=== PATIENT | female | born 1950 | race Caucasian/White ===

== ENCOUNTER 2020-10-14 14:38 | Inpatient (IN) | payer OTHER, SELFPAY ==
--- OUTSIDE RECORDS SUMMARY | 2020-10-14 14:41 | XMS REPORT | Continuity of Care Document ---
:1950 Author Organization [facility] t Address [address] [place] [address] Care Team Providers Name Role Phone Unavailable Unavailable Unavailable Problems This patient has no known problems. Allergies, Adverse Reactions, Alerts This patient has no known allergies or adverse reactions. Medications This patient has no known medications. Procedures This patient has no known procedures. Encounters Start End Encounter Admission Attending Care Care Encounter Source Date/Time Date/Time Type Type Clinicians Facility Department ID 2020-09-21 2020-09-21 Outpatient [facility] [id number] [place] 00:00:00 00:00:[id number] 2020-08-31 2020-08-31 Outpatient [facility] [id number] [place] 00:00:00 00:00:[id number] Results This patient has no known results.
--- NOTE | 2020-10-14 15:32 | RAD REPORT ---
EXAM DESCRIPTION: CT - Head Brain Wo Cont - 10/14/2020 3:12 pm CLINICAL HISTORY: Alteration of awareness/confusion COMPARISON: None TECHNIQUE: Computed axial tomography of the head was obtained. IV contrast was not requested. All CT scans are performed using dose optimization technique as appropriate and may include automated exposure control or mA/KV adjustment according to patient size. FINDINGS: Beam hardening artifact limits evaluation of portions of cerebellum. An intracranial bleed is not seen . The ventricles are normal in caliber. No extra-axial fluid collection is noted. Mild low-density areas within periventricular, deep and subcortical white matter likely represent isc hemic changes secondary to small vessel disease. Fluid within the sinuses/ mastoids is not seen. IMPRESSION: No acute intracranial abnormality is seen. If patient's symptoms persist MRI of the bra in would be recommended.
--- NOTE | 2020-10-14 15:33 | RAD REPORT ---
EXAM DESCRIPTION: Jacy Single View10/14/2020 3:25 pm CLINICAL HISTORY: Fever COMPARISON: none FINDINGS: The lungs appear clear of acute infiltrate. The heart is normal size IMPRESSION: No acute abnormalities displayed
[2020-10-14 15:35] LABS: Absolute Lymphocytes (CBC) 0.8 K/uL (0.7-4.9); Basophils % 0.4 % (0-1.3); Hematocrit 35.9 % (36.0-45.0); Lymphocytes % 6.1 % (15.3-44.8); MPV 9.8 fL (7.6-11.3); RBC Red Blood Cell Count 4.31 M/uL (3.86-4.86)
[2020-10-14 15:37] LABS: Protime INR 1.34
[2020-10-14 15:47] LABS: ALT/SGPT 16 U/L (12-78); AST/SGOT 9 U/L (15-37); Albumin 2.8 g/dL (3.4-5.0); Alkaline Phosphatase 63 U/L (45-117); BUN Blood Urea Nitrogen 19 mg/dL (7-18); Bicarbonate 24 mmol/L (21-32); Bilirubin Direct 0.4 mg/dL (0-0.2); Creatine Phosphokinase 48 U/L (26-192); Glucose Level 306 mg/dL (74-106); Lipase 85 U/L (73-393); Potassium 4.2 mmol/L (3.5-5.1); Protein, Total 8.1 g/dL (6.4-8.2); Sodium Level 133 mmol/L (136-145); Troponin (Emerg Dept Use Only) < 0.02 ng/mL (0.0-0.045)
--- NOTE | 2020-10-14 16:01 | ER ---
Nurse's Notes [facility] Name: Jorge Thomas Age: 70 yrs Sex: Female : 1950 Arrival Date: 10/14/2020 Time: 14:41 Bed 5 Private MD: Diagnosis: Altered mental status, unspecified;Urinary tract infection, site not specified;Delirium due to known physiological condition Presentation: 10/14 14:41 Chief complaint: Pt's neighbor brought pt in for a possible stroke. She had been sv texting her with no response back around 1200, went to her house and noted that the pt was confused and not acting her normal self. She stated that she tried to drop off dinner to her house around 1900 yesterday but the pt never picked it up outside her door. EMS was on scene but did not come in by EMS. 14:53 Chief complaint: Patient states: Confusion, slow to respond to questions, leg weakness ll1 for 1 day. Neighbor saw her yesterday. Didn't respond to text messages, so the neighbor went to check on her today. Was found confused, not making sense. Last well known time is unknown. Coronavirus screen: Client denies travel out of the [place] in the last 14 days. At this time, the client does not indicate any symptoms associated with coronavirus-19. Ebola Screen: Patient denies travel to an Ebola-affected area in the 21 days before illness onset. No acute neurological deficit is noted. Initial Sepsis Screen: Does the patient meet any 2 criteria? No. Patient's initial sepsis screen is negative. Does the patient have a suspected source of infection? No. Patient's initial sepsis screen is negative. Risk Assessment: Do you want to hurt yourself or someone else? Patient reports no desire to harm self or others. Onset of symptoms was October 13, 2020. 14:53 Method Of Arrival: Wheelchair ll1 14:53 Acuity: EDITH 2 ll1 Stroke Activation: Symptom onset > 6 hours Physician: Stroke Attending; Name: ; Notified At: ; Arrived At: Physician: Chief Stroke Resident; Name: ; Notified At: ; Arrived At: Physician: Stroke Resident; Name: ; Notified At: ; Arrived At: Physician: ED Attending; Name: ; Notified At: ; Arrived At: Physician: ED Resident; Name: ; Notified At: ; Arrived At: Historical: - Allergies: 15:59 PENICILLINS; sv - PMHx: 14:56 Hypertension; ll1 - PSHx: 14:56 Unable to obtain; ll1 - Immunization history:: Flu vaccine is up to date. - Social history:: Smoking status: Patient denies any tobacco usage or history of. - Family history:: not pertinent. - Hospitalizations: : No recent hospitalization is reported. Screenin:51 Abuse screen: Denies threats or abuse. Denies injuries from another. Nutritional hb screening: No deficits noted. Tuberculosis screening: No symptoms or risk factors identified. Fall Risk Total Duque Fall Scale indicates Low Risk Score (25-44 pts). Fall prevention measures have been instituted. Side Rails Up X 2 Frequent Obs/Assesments occuring Family Present and informed to notify staff if they need to leave bedside As available Patient and Family Educated on Fall Prevention Program and strategies. Assessment: 15:00 General: Appears in no apparent distress. Behavior is calm, cooperative. Pain: Denies hb pain. Neuro: Level of Consciousness is awake, alert, obeys commands, confused, Oriented to person, place, time. Cardiovascular: Patient's skin is warm and dry. Rhythm is regular. Respiratory: Respiratory effort is even, unlabored, Respiratory pattern is regular, symmetrical. GI: No signs and/or symptoms were reported involving the gastrointestinal system. : No signs and/or symptoms were reported regarding the genitourinary system. EENT: No signs and/or symptoms were reported regarding the EENT system. Derm: Skin is pink, warm \T\ dry. Musculoskeletal: No signs and/or symptoms reported regarding the musculoskeletal system. 16:37 Reassessment: Patient appears in no apparent distress at this time. Patient and/or hb family updated on plan of care and expected duration. Pain level reassessed. Patient is alert, oriented x 3, equal unlabored respirations, skin warm/dry/pink. 17:36 Reassessment: Patient appears in no apparent distress at this time. Patient and/or hb family updated on plan of care and expected duration. Pain level reassessed. Patient is alert, oriented x 3, equal unlabored respirations, skin warm/dry/pink. Patient states feeling better. Patient states symptoms have improved. 18:46 Reassessment: Patient appears in no apparent distress at this time. Patient and/or hb family updated on plan of care and expected duration. Pain level reassessed. Patient is alert, oriented x 3, equal unlabored respirations, skin warm/dry/pink. Patient denies pain at this time. Patient states feeling better. Patient states symptoms have improved. Vital Signs: 14:53 BP 156 / 69; Pulse 87; Resp 18; Temp 100.1; Pulse Ox 89% on R/A; Weight 127.01 kg; ll1 Height 5 ft. 4 in. (162.56 cm); Pain 0/10; 16:30 BP 129 / 77; Pulse 82; Resp 17; Pulse Ox 95% on 2 lpm NC; hb 17:36 BP 130 / 55; Pulse 74; Resp 17; Pulse Ox 96% on 2 lpm NC; hb 18:54 BP 148 / 68; Pulse 15; Temp 98.5(O); Pulse Ox 98% ; hb 19:43 BP 135 / 55; Pulse 64; Resp 18; Temp 97.9(O); Pulse Ox 95% on R/A; oe 19:56 BP 121 / 73; Pulse 66; Resp 16; Temp 98.1(O); Pulse Ox 98% on R/A; Pain 0/10; bb 14:53 Body Mass Index 48.06 (127.01 kg, 162.56 cm) ll1 ED Course: 14:41 Patient arrived in ED. rg4 14:41 Kel Mallory MD is Attending Physician. rn 14:51 Arm band placed on. hb 14:51 Patient has correct armband on for positive identification. Bed in low position. Call hb light in reach. Side rails up X 1. 14:55 Triage completed. ll1 15:04 Inserted saline lock: 20 gauge in right antecubital area, using aseptic technique. hb Blood collected. 15:12 Head Brain Wo Cont In Process Unspecified. EDMS 15:17 Supriya Molina, ZARI is Primary Nurse. hb 15:25 Chest Single View XRAY In Process Unspecified. EDMS 16:00 Ladarius Baker MD is Hospitalizing Provider. rn 17:32 Urine Dipstick--Ancillary (enter results) Sent. sv 19:56 No provider procedures requiring assistance completed. Patient admitted, IV remains in bb place. Administered Medications: 16:36 Drug: Tylenol 1000 mg Route: PO; hb 17:32 Follow up: Response: No adverse reaction hb 16:37 Drug: LevaQUIN 750 mg Volume: 150 ml; Route: IVPB; Infused Over: 90 mins; Site: right hb antecubital; Point of Care Testing: Blood Glucose: 14:50 Blood Glucose: 312 mg/dL; hb Ranges: Outcome: 16:00 Decision to Hospitalize by Provider. rn 19:56 Admitted to Tele accompanied by tech, via stretcher, room 228, with chart, Report bb called to Ryan RN 19:56 Condition: stable 19:56 Instructed on the need for admit. 20:20 Patient left the ED. wilmer Signatures: Dispatcher [employer] Roz Esquivel RN RN sv Ballard, Brenda, RN RN bb Nieto, Roman, MD MD rn Baxter, Heather, RN RN hb Garcia, Rubi rg4 Dakota Bowie Lynsay RN RN ll1 Corrections: (The following items were deleted from the chart) 15:00 14:41 Chief complaint: Pt's neighbor brought pt in for a possible stroke. She had been sv texting her with no response back around 1200, went to her house and noted that the pt was confused and not acting her normal self. She stated that she tried to drop off dinner to her house around 1900 yesterday but the pt never picked it up outside her door. sv 15:59 14:56 Allergies: No Known Allergies; ll1 sv 18:58 18:54 Pulse 15bpm; Temp 98.5F Oral; hb hb
--- NOTE | 2020-10-14 16:01 | EDPHYS ---
Physician Documentation [facility] Name: Jorge Thomas Age: 70 yrs Sex: Female : 1950 Arrival Date: 10/14/2020 Time: 14:41 Bed 5 Private MD: ED Physician Kel Mallory HPI: 10/14 14:52 This 70 yrs old Female presents to ER via Unassigned with complaints of S/S rn of Possible Stroke. 14:51 Onset: The symptoms/episode began/occurred last night. rn 14:52 The patient's problem is reported as altered mental status, confusion. Duration: The rn episode is continuous. The symptoms are alleviated by nothing. The symptoms are aggravated by nothing. Associated signs and symptoms: Pertinent positives: confusion, Pertinent negatives: abdominal pain, chest pain, combativeness, diaphoresis, diarrhea, headache, seizure, vertigo, vomiting. Severity of symptoms: At their worst the symptoms were mild in the emergency department the symptoms are unchanged. The patient has not experienced similar symptoms in the past. The patient has not recently seen a physician. Per neighbor, patient last spoken to last night/yesterday. Took her dinner and patient did not get it from front porch, checked on her today, noticed she seemed confused, and brought her in. No hx of stroke. No known drug use or ETOH. Pt states not feeling well since last night, reports mild sob, but otherwise denies headache/cough/sore throat/congestion/abd pain/vomiting/diarrhea. Reports both legs feel weak, and feels like speech is normal for her. Denies fall or head trauma. NO change in medication. . Historical: - Allergies: 15:59 PENICILLINS; sv - PMHx: 14:56 Hypertension; ll1 - PSHx: 14:56 Unable to obtain; ll1 - Immunization history:: Flu vaccine is up to date. - Social history:: Smoking status: Patient denies any tobacco usage or history of. - Family history:: not pertinent. - Hospitalizations: : No recent hospitalization is reported. ROS: 14:55 Constitutional: Negative for fever, chills, and weight loss, Eyes: Negative for injury, rn pain, redness, and discharge, Neck: Negative for injury, pain, and swelling, Cardiovascular: Negative for chest pain, palpitations, and edema, Respiratory: Negative for wheezing, and pleuritic chest pain, Abdomen/GI: Negative for abdominal pain, nausea, vomiting, diarrhea, and constipation, Back: Negative for injury and pain, : Negative for injury, bleeding, discharge, and swelling, MS/Extremity: Negative for injury and deformity, Skin: Negative for injury, rash, and discoloration, Neuro: Negative for headache, numbness, tingling, and seizure. Exam: 14:55 Constitutional: This is a well developed, well nourished patient who is awake, alert, rn seems confused, able to get from wheelchair to bed on her own and get into bed. Head/Face: Normocephalic, atraumatic. Eyes: Pupils equal round and reactive to light, extra-ocular motions intact. ENT: dry MM Neck: Trachea midline, no thyromegaly or masses palpated, and no cervical lymphadenopathy. Supple, full range of motion without nuchal rigidity, or vertebral point tenderness. No Meningismus. Cardiovascular: Regular rate and rhythm. No pulse deficits. Respiratory: Mild tachypnea, no retractions. Abdomen/GI: soft, non-tender Skin: Warm, dry MS/ Extremity: Pulses equal, no cyanosis. Neurovascular intact. Full, normal range of motion. Equal circumference. Neuro: Awake and alert, GCS 15, oriented to person, place, and situation, does not know year. Cranial nerves II-XII grossly intact. Motor strength 5/5 in all extremities. Sensory grossly intact. Cerebellar exam normal. 16:26 ECG was reviewed by the Attending Physician. rn Vital Signs: 14:53 BP 156 / 69; Pulse 87; Resp 18; Temp 100.1; Pulse Ox 89% on R/A; Weight 127.01 kg; ll1 Height 5 ft. 4 in. (162.56 cm); Pain 0/10; 16:30 BP 129 / 77; Pulse 82; Resp 17; Pulse Ox 95% on 2 lpm NC; hb 17:36 BP 130 / 55; Pulse 74; Resp 17; Pulse Ox 96% on 2 lpm NC; hb 18:54 BP 148 / 68; Pulse 15; Temp 98.5(O); Pulse Ox 98% ; hb 19:43 BP 135 / 55; Pulse 64; Resp 18; Temp 97.9(O); Pulse Ox 95% on R/A; oe 19:56 BP 121 / 73; Pulse 66; Resp 16; Temp 98.1(O); Pulse Ox 98% on R/A; Pain 0/10; bb 14:53 Body Mass Index 48.06 (127.01 kg, 162.56 cm) ll1 MDM: 14:41 Patient medically screened. rn 15:00 ED course: Nonfocal neuro exam, pt seems more delirious or encephalopathic than rn anything, possible UTI or pneumonia given vital signs of fever and hypoxemia. Last known normal some time yesterday, so even if CVA, outside of window. . 15:58 Differential diagnosis: TIA, metabolic disorder, UTI, dehydration, TIA, CVA, pneumonia, rn COVID. Data reviewed: vital signs, nurses notes, lab test result(s), EKG, radiologic studies, CT scan, plain films, and as a result, I will admit patient. Counseling: I had a detailed discussion with the patient and/or guardian regarding: the historical points, exam findings, and any diagnostic results supporting the discharge/admit diagnosis, lab results, radiology results, the need for further work-up and treatment in the hospital. Response to treatment: the patient's symptoms have mildly improved after treatment, and as a result, I will admit patient. Admission orders: after a detailed discussion of the patient's condition and case, the admit orders are written by me. ED course: Pt with UTI, nitrate +, delirium, neg ct head and cxr, will admit to Dr. Baker. . 10/14 14:51 Order name: Basic Metabolic Panel rn 10/14 14:51 Order name: Blood Culture Adult (2) rn 10/14 14:51 Order name: CBC with Diff rn 10/14 14:51 Order name: CPK rn 10/14 14:51 Order name: Lactate rn 10/14 14:51 Order name: LFT's rn 10/14 14:51 Order name: Lipase rn 10/14 14:51 Order name: Procalcitonin rn 10/14 14:51 Order name: Protime (+inr) rn 10/14 14:51 Order name: Ptt, Activated rn 10/14 14:51 Order name: Troponin (emerg Dept Use Only); Complete Time: 15:57 rn 10/14 14:51 Order name: Urine Microscopic Only rn 10/14 14:51 Order name: Urine Culture 10/14 14:51 Order name: Basic Metabolic Panel; Complete Time: 15:57 EDWA 10/14 14:51 Order name: Blood Culture [facility] [place] 10/14 14:51 Order name: CBC with Automated Diff EDWA 10/14 14:51 Order name: Creatine Phosphokinase; Complete Time: 15:57 EDMS 10/14 14:52 Order name: Lactate; Complete Time: 15:57 EDWA 10/14 14:52 Order name: Liver (Hepatic) Function; Complete Time: 15:57 EDMS 10/14 14:52 Order name: Lipase; Complete Time: 15:57 EDWA 10/14 14:52 Order name: Procalcitonin [facility] [place] 10/14 14:52 Order name: Protime (+INR); Complete Time: 15:43 EDWA 10/14 14:52 Order name: PTT, Activated Partial Thromb; Complete Time: 15:43 EDWA 10/14 14:52 Order name: Urine Drug Screen 10/14 14:52 Order name: AMMONIA; Complete Time: 15:43 10/14 14:54 Order name: ETOH Level; Complete Time: 15:57 10/14 15:03 Order name: Glucose, Ancillary Testing; Complete Time: 15:34 EDWA 10/14 16:01 Order name: Urine Dipstick--Ancillary (enter results) 10/14 14:51 Order name: CT Head Brain wo Cont 10/14 14:51 Order name: Chest Single View XRAY; Complete Time: 15:34 10/14 14:51 Order name: Accucheck; Complete Time: 15:20 rn 10/14 14:51 Order name: Cardiac monitoring; Complete Time: 16:16 rn 10/14 14:51 Order name: EKG - Nurse/Tech; Complete Time: 16:16 rn 10/14 14:51 Order name: IV Saline Lock - Large Bore; Complete Time: 16:16 rn 10/14 14:51 Order name: Labs collected and sent; Complete Time: 15:20 rn 10/14 14:51 Order name: O2 Per Protocol; Complete Time: 15:20 rn 10/14 14:51 Order name: O2 Sat Monitoring; Complete Time: 15:20 rn 10/14 14:51 Order name: Urine Dipstick-Ancillary (obtain specimen); Complete Time: 16:23 rn 10/14 14:51 Order name: Head Brain Wo Cont; Complete Time: 15:34 EDWA 10/14 16:01 Order name: Urine Dipstick-Ancillary EDWA 10/14 16:28 Order name: CONS Physician Consult EDWA 10/14 16:28 Order name: CBC with Automated Diff EDWA 10/14 16:28 Order name: CBC with Automated Diff EDWA 10/14 16:28 Order name: Comprehensive Metabolic Panel EDWA 10/14 16:28 Order name: Comprehensive Metabolic Panel EDWA 10/14 16:58 Order name: CBC Smear Scan EDWA 10/14 17:02 Order name: COVID-19/FLU A+B EDMS EC:26 Rate is 86 beats/min. Rhythm is regular. QRS Dalton is Normal. CO interval is normal. QRS rn interval is normal. QT interval is normal. No Q waves. T waves are Normal. No ST changes noted. Clinical impression: Normal ECG. Interpreted by me. Reviewed by me. Administered Medications: 16:36 Drug: Tylenol 1000 mg Route: PO; hb 17:32 Follow up: Response: No adverse reaction hb 16:37 Drug: LevaQUIN 750 mg Volume: 150 ml; Route: IVPB; Infused Over: 90 mins; Site: right hb antecubital; Point of Care Testing: Blood Glucose: 14:50 Blood Glucose: 312 mg/dL; hb Ranges: Critical Glucose Levels:Adult <50 mg/dl or >400 mg/dl <40 mg/dl or >180 mg/dl Disposition: 10/14/20 16:00 Hospitalization ordered by Ladarius Baker for Inpatient Admission. Preliminary diagnosis are Altered mental status, unspecified, Urinary tract infection, site not specified, Delirium due to known physiological condition. - Bed requested for Telemetry/MedSurg (Inpatient). - Status is Inpatient Admission. bb - Condition is Stable. - Problem is new. - Symptoms have improved. Signatures: Dispatcher [employer] [facility] [place] Roz Taylor, Ivy Olea RN, RN RN mw Ballard, Brenda, RN RN bb Nieto, Roman, MD MD rn Baxter, Heather, RN RN hb Lewis, Lynsay RN RN ll1 Corrections: (The following items were deleted from the chart) 14:56 14:52 Per neighbor, patient last spoken to last night/yesterday. Took her dinner and rn patient did not get it from front porch, checked on her today, noticed she seemed confused, and brought her in. No hx of stroke. No known drug use or ETOH. . rn 15:59 14:56 Allergies: No Known Allergies; ll1 sv 16:14 14:52 Influenza Screen (A \T\ B)+BA.LAB.BRZ ordered. EDMS EDMS 16:14 14:52 CORONAVIRUS+MR.LAB.BRZ ordered. EDMS EDMS 19:05 16:00 Hospitalization Ordered by Ladarius Baker MD for Inpatient Admission. Preliminary mw diagnosis is Altered mental status, unspecified; Urinary tract infection, site not specified; Delirium due to known physiological condition. Bed requested for Telemetry/MedSurg (Inpatient). Status is Inpatient Admission. Condition is Stable. Problem is new. Symptoms have improved. rn 19:12 19:05 10/14/2020 16:00 Hospitalization Ordered by Ladarius Baker MD for Inpatient mw Admission. Preliminary diagnosis is Altered mental status, unspecified; Urinary tract infection, site not specified; Delirium due to known physiological condition. Bed requested for Telemetry/MedSurg (Inpatient). Status is Inpatient Admission. Condition is Stable. Problem is new. Symptoms have improved. mw 20:20 19:12 10/14/2020 16:00 Hospitalization Ordered by Ladarius Baker MD for Inpatient bb Admission. Preliminary diagnosis is Altered mental status, unspecified; Urinary tract infection, site not specified; Delirium due to known physiological condition. Bed requested for Telemetry/MedSurg (Inpatient). Status is Inpatient Admission. Condition is Stable. Problem is new. Symptoms have improved. mw
[2020-10-14 16:20] LABS: Urine Amorphous Sediment 1+ /HPF (NONE SEEN); Urine Bacteria >50 /HPF (<20); Urine RBC <5 /HPF (NONE SEEN)
[2020-10-14 16:21] LABS: Urine Blood 2+ (Negative); Urine Protein 3+ (NEG); Urine Specific Gravity 1.025 (1.005-1.030)
[2020-10-14] MEDS ORDERED: MORPHINE 2 MG/ML SYR IV PRN (16:23)
[2020-10-14] MEDS ORDERED: ACETAMINOPHEN 500 MG TAB PO PRN (16:23)
[2020-10-14] MEDS ORDERED: ALBUTEROL 2.5 MG/3 ML NEB SOL NEB PRN (16:23)
[2020-10-14] MEDS ORDERED: ONDANSETRON 4 MG/2 ML VIAL IV PRN (16:23)
[2020-10-14 16:26] LABS: Barbiturates NEGATIVE (NEGATIVE); Benzodiazepines NEGATIVE (NEGATIVE); Cocaine NEGATIVE (NEGATIVE); METHAMPHETAM NEGATIVE (NEGATIVE); Methadone NEGATIVE (NEGATIVE); Opiates NEGATIVE (NEGATIVE); Phencyclidine NEGATIVE (NEGATIVE); THC Cannibis NEGATIVE (NEGATIVE)
[2020-10-14] MEDS ORDERED: LORAZEPAM 0.5 MG TABLET PO PRN (16:26)
[2020-10-14] MEDS ORDERED: HYDRALAZINE HCL 20 MG/ML VIAL IV PRN (16:26)
[2020-10-14] MEDS: INSULIN -REGULAR HUMAN 50 UNIT/0.5 ML ML SQ SCH ×2 (16:30→21:03)
--- NOTE | 2020-10-14 16:34 | P.HP ---
Certification for Inpatient With expected LOS: >2 Midnights Patient will require the following post-hospital care: Home Health Services Practitioner: I am a practitioner with admitting privileges, knowledge of patient current condition, hospital course, and medical plan of care. Services: Services provided to patient in accordance with Admission requirements found in Title 42 Section 412.3 of the Code of Federal Regulations Patient History Date of Service: 10/14/20 Reason for admission: confusion History of Present Illness: 70 yr old female with past medical history of HTN , Presumed DM brought by neighbor after last seen yesterday but was not responding to calls and texts since then , found by neighbor to be confused today . on arrival , Head CT was negative for acute CVA , noted with elevated glucose at 340 . Urinalysis positive for UTI . Patient is still confused and unable to provide more history .She is [facility] admitted for urosepsis - Past Medical/Surgical History Has patient received pneumonia vaccine in the past: No Past Medical History: Unable to obtain Past Surgical History: Unable to obtain - Social History Smoking Status: Unknown if ever smoked Place of Residence: Home Review of Systems is unable to be obtained (due to confusion) Physical Examination - Physical Exam General: Cooperative, Confused HEENT: Atraumatic, Normocephalic, PERRLA Neck: Supple, 2+ carotid pulse no bruit, JVD not distended Respiratory: Clear to auscultation bilaterally, Normal air movement Cardiovascular: No edema, Normal pulses, Regular rate/rhythm, Normal S1 S2 Gastrointestinal: Normal bowel sounds, Soft and benign, Non-distended Musculoskeletal: No clubbing, No swelling Integumentary: No rashes, No breakdown Neurological: Normal strength at 5/5 x4 extr, Dementia - Studies Laboratory Data (last 24 hrs) 10/14/20 15:07: PT 15.5 H, INR 1.34, APTT 29.2 10/14/20 15:07: WBC 13.30 H, Hgb 12.2, Hct 35.9 L, Plt Count 217 10/14/20 15:07: Sodium 133 L, Potassium 4.2, BUN 19 H, Creatinine 1.34 H, Glucose 306 H, Total Bilirubin 1.0, AST 9 L, ALT 16, Alkaline Phosphatase 63, Lipase 85 Assessment and Plan - Advance Directives Does patient have a Living Will: No Does patient have a Durable POA for Healthcare: No Physician Review: Patient Assessed, Agree with Above Assessment and Plan Physician Review Additional Text: UTI- with Urosepsis Metabolic Encephalopathy Hyponatremia-mild ARF Hyperglycemia PLAN - start empirical antibiotics with Levaquin - gentle IVF with NS - start insulin sliding scale with accuchecks - follow urine culture and sensitivity and adjust abx - follow blood cx -neuro checks q6h for now - will dos Ativan prn for now - admit to tele bed -start lovenox for DVT prop - initiate full code for now Time Spent Managing Pts Care (In Minutes): 60
[2020-10-14] MEDS ORDERED: ACETAMINOPHEN 500 MG TAB ONE (16:44)
[2020-10-14] MEDS ORDERED: Levofloxacin 750mg IV 750 MG/150 ML BAG IV ONE (16:44)
[2020-10-14 16:57] LABS: Blood Morphology Comment NOT SEEN (NOT SEEN); Platelet Estimate ADEQ; White Blood Cell Scan OK (OK)
[2020-10-14] MEDS: NA CHLORIDE 0.9% 1,000 ML IV SCH ×2 (17:00→20:32)
[2020-10-14] MEDS ORDERED: Levofloxacin500mg IV 500 MG/100 ML BAG IV SCH (17:00)
[2020-10-14 17:02] LABS: SARS-COV-2 RT PCR NEGATIVE (NEGATIVE)
[2020-10-14 21:45] VITALS: BMI 48.4
[2020-10-14] MEDS ORDERED: Levofloxacin 250mg IV 250 MG/50 ML BAG IV SCH (23:00)
[2020-10-15] MEDS: NA CHLORIDE 0.9% 1,000 ML IV SCH ×2 (02:23→05:54)
[2020-10-15 04:48] LABS: Absolute Lymphocytes (CBC) 0.7 K/uL (0.7-4.9); Basophils % 0.3 % (0-1.3); Hematocrit 32.7 % (36.0-45.0); Lymphocytes % 6.7 % (15.3-44.8); MPV 9.6 fL (7.6-11.3); RBC Red Blood Cell Count 3.94 M/uL (3.86-4.86)
[2020-10-15 05:13] LABS: Albumin 2.4 g/dL (3.4-5.0); Bilirubin Total 0.7 mg/dL (0.2-1.0); Potassium 4.3 mmol/L (3.5-5.1); Protein, Total 7.1 g/dL (6.4-8.2)
[2020-10-15] MEDS: INSULIN -REGULAR HUMAN 50 UNIT/0.5 ML ML SQ SCH ×4 (08:59→21:53)
[2020-10-15] MEDS: ENOXAPARIN 40 MG/0.4 ML SQ SCH (09:00)
--- NOTE | 2020-10-15 09:32 | P.CNS ---
Date of Consult: 10/15/20 Reason for Consult: Hyponatremia/ CKD III Requesting Physician: Ladarius Baker Chief Complaint: confusion History of Present Illness: 70 yo WF HTN, DM presented to the ER with severe, progressive AMS in the setting of acute cystitis. She is feeling much better today. She reports a history of SRIKANTH requiring dialysis in the past. She denies NSAIDs. She reports drinking plenty of water and urinates well. 70 yr old female with past medical history of HTN , Presumed DM brought by neighbor after last seen yesterday but was not responding to calls and texts since then , found by neighbor to be confused today . on arrival , Head CT was negative for acute CVA , noted with elevated glucose at 340 . Urinalysis positive for UTI . 14:52 This 70 yrs old Female presents to ER via Unassigned with complaints of S/S rn of Possible Stroke. 14:51 Onset: The symptoms/episode began/occurred last night. rn 14:52 The patient's problem is reported as altered mental status, confusion. Duration: The rn episode is continuous. The symptoms are alleviated by nothing. The symptoms are aggravated by nothing. Associated signs and symptoms: Pertinent positives: confusion, Pertinent negatives: abdominal pain, chest pain, combativeness, diaphoresis, diarrhea, headache, seizure, vertigo, vomiting. Severity of symptoms: At their worst the symptoms were mild in the emergency department the symptoms are unchanged. The patient has not experienced similar symptoms in the past. The patient has not recently seen a physician. Per neighbor, patient last spoken to last night/yesterday. Took her dinner and patient did not get it from front porch, checked on her today, noticed she seemed confused, and brought her in. No hx of stroke. No known drug use or ETOH. Pt states not feeling well since last night, reports mild sob, but otherwise denies headache/cough/sore throat/congestion/abd pain/vomiting/diarrhea. Reports both legs feel weak, and feels like speech is normal for her. Denies fall or head trauma. NO change in medication. Allergies Penicillins Allergy (Verified 10/14/20 20:40) Shortness of breath Rexuwwy-Ych-Mgs Reductase Inhibitor Allergy (Verified 10/14/20 20:40) pain in the leg statins Allergy (Uncoded 10/14/20 20:40) pain in the leg Home medications list reviewed: Yes Home Medications: Cholecalciferol (Vitamin D3) [Vitamin D3] 1 tab PO TID 10/14/20 Docosahexanoic AC/Epa [Fish Oil 1,000 MG*] 1 cap PO TID 10/14/20 Ezetimibe 1 tab PO DAILY 10/14/20 Fenofibric Acid (Choline) [Fenofibric Acid] 1 cap PO DAILY 10/14/20 Ferrous Sulfate [Ferrous Sulfate*] 1 tab PO DAILY 10/14/20 Glimepiride 1 tab PO DAILY 10/14/20 Insulin Glargine,Hum.rec.anlog [Lantus Solostar] 23 units SQ BID 10/14/20 Insulin Lispro [Insulin Lispro Kwikpen U-100] 4 units SQ ACHS 10/14/20 Losartan Potassium 1 tab PO DAILY 10/14/20 Metformin HCl [Metformin HCl ER] 2 tab PO BID 10/14/20 Niacin (Inositol Niacinate) [Niacin 500 mg Capsule] 1 cap PO BEDTIME 10/14/20 Pantoprazole [Protonix Tab*] 1 tab PO DAILY 10/14/20 Sitagliptin Phosphate [Januvia*] 1 tab PO DAILY 10/14/20 hydroCHLOROthiazide [Hydrochlorothiazide] 1 tab PO DAILY 10/14/20 - Past Medical/Surgical History Diabetic: Yes -: HTN -: UTI -: IDDM -: HLD -: 6YEARS AGO-HYSTERECTOMY - Family History Uncle Medical History: Diabetes - Social History Alcohol use: Yes CD- Drugs: No Caffeine use: Yes Place of Residence: Home Review of Systems 10-point ROS is otherwise unremarkable Physical Examination Temp Pulse Resp BP Pulse Ox 98.8 F 69 20 124/58 L 95 10/15/20 08:00 10/15/20 08:00 10/15/20 08:00 10/15/20 08:00 10/15/20 08:00 General: In no apparent distress, Oriented x3, Cooperative HEENT: Atraumatic Neck: Supple Respiratory: Clear to auscultation bilaterally Cardiovascular: Edema (Trace) Gastrointestinal: Soft and benign, Non-distended Musculoskeletal: No clubbing, No contractures Integumentary: No rashes, No cyanosis Neurological: Normal speech Laboratory Data (last 24 hrs) 10/14/20 15:07: PT 15.5 H, INR 1.34, APTT 29.2 10/14/20 15:07: WBC 13.30 H, Hgb 12.2, Hct 35.9 L, Plt Count 217 10/14/20 15:07: Sodium 133 L, Potassium 4.2, BUN 19 H, Creatinine 1.34 H, Glucose 306 H, Total Bilirubin 1.0, AST 9 L, ALT 16, Alkaline Phosphatase 63, Lipase 85 Imagings Data: EXAM DESCRIPTION: Jacy Single View10/14/2020 3:25 pm CLINICAL HISTORY: Fever COMPARISON: none FINDINGS: The lungs appear clear of acute infiltrate. The heart is normal size IMPRESSION: No acute abnormalities displayed Conclusions/Impression: A/P CKD III with proteinuria -No NSAIDs -Discontinue IVF later today. -Restart Losartan as indicated Hyponatremia -Reduce IVF with NS -Improve BG HTN with CKD -Restart Losartan as indicated DM II with CKD -Continue RISS -Restart Lantus q12 and titrate as needed Moderate malnutrition -Encourage nutrition with protein supplementation -ADA diet Anemia in chronic illness -Monitor H&H Acute cystitis -Continue Levaquin -Follow C&S Case reviewed with Dr. Villasenor
[2020-10-15] MEDS ORDERED: NA CHLORIDE 0.9% 1,000 ML IV SCH (10:36)
[2020-10-15] MEDS ORDERED: GLUCAGON 1 MG/VIAL IM PRN (10:38)
[2020-10-15] MEDS ORDERED: D50W 25 GM/50 ML SYRINGE IV PRN (10:38)
[2020-10-15] MEDS ORDERED: INSULIN GLARGINE 100 UNITS/ML SQ SCH ×2 (11:00→21:00)
[2020-10-15] MEDS ORDERED: D50W 25 GM/50 ML VIAL IV PRN (15:00)
--- NOTE | 2020-10-15 15:01 | P.PN ---
Subjective Date of Service: 10/15/20 Primary Care Provider: Janak Chief Complaint: confusion Subjective: Improving Physical Examination - Vital Signs Temperature: 98.8 F Blood Pressure: 139/65 Pulse: 64 Respirations: 20 Pulse Ox (%): 97 - Studies Laboratory Data (last 24 hrs) 10/14/20 15:07: PT 15.5 H, INR 1.34, APTT 29.2 10/14/20 15:07: WBC 13.30 H, Hgb 12.2, Hct 35.9 L, Plt Count 217 10/14/20 15:07: Sodium 133 L, Potassium 4.2, BUN 19 H, Creatinine 1.34 H, Glucose 306 H, Total Bilirubin 1.0, AST 9 L, ALT 16, Alkaline Phosphatase 63, Lipase 85 Assessment & Plan Discharge Plan: Home Plan to discharge in: 24 Hours Physician Review Additional Text: Physical exam: Patient alert, cooperative. No significant distress Heart: Regular rate and rhythm Lungs: Clear to auscultation Abdomen: Soft nontender nondistended Extremities: Good range of motion to the upper lower extremities no focal deficits Impression: Toxic/metabolic encephalopathy related to UTI with bacteremia Acute renal failure with hyponatremia likely dehydration Diabetes mellitus type 2 with hyperglycemia Plan: Toxic/metabolic encephalopathy related to UTI with bacteremia: Continue with IV fluids. Continue IV antibiotic therapy. Urine culture positive for gram- negative rods. Await urine culture results. Patient will need 14-day treatment of medication. Acute renal failure with hyponatremia likely dehydration: Continue IV fluids. Await recommendations from nephrology. Diabetes mellitus type II with hyperglycemia: We will check A1c. Continue Accu- Cheks. Will adjust Lantus for better control. Time Spent Managing Pts Care (In Minutes): 55
[2020-10-15] MEDS: Levofloxacin 250mg IV 250 MG/50 ML BAG IV SCH (21:51)
[2020-10-16 06:13] LABS: Absolute Lymphocytes (CBC) 1.2 K/uL (0.7-4.9); Basophils % 0.4 % (0-1.3); Hematocrit 29.7 % (36.0-45.0); Lymphocytes % 11.7 % (15.3-44.8); RBC Red Blood Cell Count 3.61 M/uL (3.86-4.86)
[2020-10-16 06:34] LABS: Magnesium 1.6 mg/dL (1.8-2.4); Potassium 3.9 mmol/L (3.5-5.1); Thyroid Stimulating Hormone 1.21 uIU/mL (0.360-3.740)
[2020-10-16] MEDS ORDERED: MAGNESIUM SULFATE 1 gm IVPB 1 GM/100 ML BAG IV ONE (09:00)
[2020-10-16] MEDS: INSULIN -REGULAR HUMAN 50 UNIT/0.5 ML ML SQ SCH ×4 (09:07→20:48)
[2020-10-16] MEDS: INSULIN GLARGINE 100 UNITS/ML SQ SCH ×2 (09:08→20:48)
[2020-10-16] MEDS: ENOXAPARIN 40 MG/0.4 ML SQ SCH (09:08)
--- NOTE | 2020-10-16 09:16 | P.PN ---
Subjective Date of Service: 10/16/20 Primary Care Provider: Janak Chief Complaint: confusion Subjective: Improving, Doing well Physical Examination - Vital Signs Temperature: 97.8 F Blood Pressure: 125/60 Pulse: 58 Respirations: 18 Pulse Ox (%): 99 Assessment & Plan Discharge Plan: Home Plan to discharge in: 24 Hours Physician Review Additional Text: Physical exam: Patient remains afebrile. No complaints Patient alert, cooperative. No significant distress Heart: Regular rate and rhythm Lungs: Clear to auscultation Abdomen: Soft nontender nondistended Extremities: Good range of motion to the upper lower extremities no focal deficits Impression: Toxic/metabolic encephalopathy related to UTI with bacteremia Acute renal failure with hyponatremia likely dehydration, suspect underlying chronic renal disease stage III Diabetes mellitus type 2 with hyperglycemia Plan: Toxic/metabolic encephalopathy related to UTI with bacteremia: IV fluids have been discontinued. Patient taking good oral intake. Awaiting culture results from urine and blood. Possible discharge as early as today if cultures come back. We will need to repeat blood and urine culture results. Acute renal failure with hyponatremia likely dehydration, suspect underlying chronic renal disease stage III: IV fluids have been stopped. Taking good oral intake. Will discuss with nephrology.. Diabetes mellitus type II with hyperglycemia: Hemoglobin A1c 7.8. Continue Accu- Cheks. Will continue to adjust Lantus for better control. Time Spent Managing Pts Care (In Minutes): 55
[2020-10-16] MEDS: Levofloxacin 250mg IV 250 MG/50 ML BAG IV SCH (20:48)
[2020-10-17 04:14] LABS: Absolute Lymphocytes (CBC) 1.2 K/uL (0.7-4.9); Basophils % 0.6 % (0-1.3); Hematocrit 29.3 % (36.0-45.0); Lymphocytes % 14.2 % (15.3-44.8); MPV 10.1 fL (7.6-11.3); RBC Red Blood Cell Count 3.62 M/uL (3.86-4.86)
[2020-10-17 04:30] LABS: Magnesium 1.9 mg/dL (1.8-2.4); Potassium 3.9 mmol/L (3.5-5.1)
[2020-10-17] MEDS: INSULIN -REGULAR HUMAN 50 UNIT/0.5 ML ML SQ SCH ×2 (07:30→11:36)
[2020-10-17 08:58] VITALS: BP 137/62; TEMP 97.1
[2020-10-17] MEDS: INSULIN GLARGINE 100 UNITS/ML SQ SCH (09:15)
[2020-10-17] MEDS: ENOXAPARIN 40 MG/0.4 ML SQ SCH (09:15)
--- NOTE | 2020-10-17 09:20 | P.DS ---
Admission Date: 10/14/20 Discharge Date: 10/17/20 Primary Care Provider: Janak Disposition: ROUTINE DISCHARGE Discharge Condition: GOOD Reason for Admission: confusion Consultations: Nephrology-Dr. Vargas Procedures: COVID: Negative CT Head: FINDINGS: Beam hardening artifact limits evaluation of portions of cerebellum. An intracranial bleed is not seen . The ventricles are normal in caliber. No extra-axial fluid collection is noted. Mild low-density areas within periventricular, deep and subcortical white matter likely represent ischemic changes secondary to small vessel disease. Fluid within the sinuses/ mastoids is not seen. IMPRESSION: No acute intracranial abnormality is seen Impression: Toxic/metabolic encephalopathy related to UTI with bacteremia, urine and blood culture positive for Klebsiella pneumoniae Acute renal failure with hyponatremia likely dehydration, suspect underlying chronic renal disease stage III Diabetes mellitus type 2 with hyperglycemia Hyperlipidemia Anemia of chronic disease GERD Obesity, BMI 48.4 Brief History of Present Illness: 70 yr old female with past medical history of HTN, diabetes presented with altered mental status. Patient found to have elevated blood sugar with UTI. Patient was admitted for further evaluation. Initial CT scan head unremarkable. Hospital Course: Patient presented with altered mental status secondary to toxic/metabolic encephalopathy related to UTI and bacteremia. Patient was found to have Klebsiella in the urine and blood. Patient responded well to IV antibiotic therapy and IV fluids. Nephrology was consulted during the course of her stay. At discharge patient back to baseline. No abnormal symptoms noted. At discharge patient will continue with Levaquin 250 mg daily for 11 more days to complete treatment. Patient will also continue with lactobacillus 3 times a day for the duration of antibiotic therapy. Repeat blood culture and urine culture obtained prior to discharge. Recommend follow-up with PCP to follow-up this hospitalization. UTI prevention will be provided. Patient had acute renal failure with hyponatremia likely from dehydration. Patient with chronic renal disease stage III. Nephrology was consulted. Adjustments in medications were made. At discharge will recommend to discontinue Metformin and hydrochlorothiazide. Recommend future adjustments in medications per renal function. Recommend no further use of nonsteroidal anti- inflammatories. Recommend to monitor labBMP closely. Recommend follow-up with nephrology as an outpatient to further address. Patient with diabetes mellitus type 2 with hyperglycemia. Medications have been adjusted. Due to her chronic renal disease will recommend to discontinue Metformin. At discharge patient may continue with Januvia 100 mg daily, glimepiride 4 mg daily. Patient may also continue with her Lantus 23 units subcu twice daily and Humalog sliding scale. Recommend to maintain blood sugar less than 140 fasting and less than 200 after meals. Recommend follow-up with PCP to further monitor and adjust medication. Patient with hypertension. Medications have been adjusted due to her renal disease. Please note hydrochlorothiazide has been discontinued. Patient will continue with losartan at a lower dose of 25 mg daily. Recommend to maintain blood pressure less than 130/80. Further adjustment can be done by her PCP. Patient with anemia chronic disease. At discharge patient will continue with iron supplementation. Patient with hyperlipidemia. At discharge patient will continue with her medications including fish oil, fenofibrate, niacin and Ezetimbe. Recommend follow-up with PCP to further monitor and adjust. Vital Signs/Physical Exam: Temp Pulse Resp BP Pulse Ox 97.1 F 61 18 137/62 94 10/17/20 08:00 10/17/20 08:00 10/17/20 08:00 10/17/20 08:00 10/17/20 08:00 General: Alert, In no apparent distress, Oriented x3, Cooperative HEENT: Atraumatic Neck: Supple Respiratory: Clear to auscultation bilaterally, Normal air movement Cardiovascular: Normal pulses, Regular rate/rhythm Gastrointestinal: Normal bowel sounds, Soft and benign, Non-distended, No tenderness, No masses, No rebound, No guarding Neurological: Normal speech, Normal strength at 5/5 x4 extr, Normal tone, Normal affect Laboratory Data at Discharge: WBC 8.40 K/uL (4.3-10.9) D 10/17/20 03:47 Hgb 10.6 g/dL (12.0-15.0) L 10/17/20 03:47 Hct 29.3 % (36.0-45.0) L 10/17/20 03:47 Plt Count 224 K/uL (152-406) 10/17/20 03:47 PT 15.5 SECONDS (9.5-12.5) H 10/14/20 15:07 INR 1.34 10/14/20 15:07 APTT 29.2 SECONDS (24.3-36.9) 10/14/20 15:07 Sodium 136 mmol/L (136-145) 10/17/20 03:47 Potassium 3.9 mmol/L (3.5-5.1) 10/17/20 03:47 BUN 28 mg/dL (7-18) H 10/17/20 03:47 Creatinine 1.22 mg/dL (0.55-1.3) 10/17/20 03:47 Glucose 168 mg/dL (74-106) H 10/17/20 03:47 Magnesium 1.9 mg/dL (1.8-2.4) 10/17/20 03:47 Total Bilirubin 0.7 mg/dL (0.2-1.0) 10/15/20 04:16 AST 8 U/L (15-37) L 10/15/20 04:16 ALT 14 U/L (12-78) 10/15/20 04:16 Alkaline Phosphatase 62 U/L (45-117) 10/15/20 04:16 Lipase 85 U/L (73-393) 10/14/20 15:07 Home Medications: Cholecalciferol (Vitamin D3) [Vitamin D3] 1 tab PO TID 10/14/20 Docosahexanoic AC/Epa [Fish Oil 1,000 MG*] 1 cap PO TID 10/14/20 Ezetimibe 1 tab PO DAILY 10/14/20 Fenofibric Acid (Choline) [Fenofibric Acid] 1 cap PO DAILY 10/14/20 Ferrous Sulfate [Ferrous Sulfate*] 1 tab PO DAILY 10/14/20 Glimepiride 1 tab PO DAILY 10/14/20 Insulin Glargine,Hum.rec.anlog [Lantus Solostar] 23 units SQ BID 10/14/20 Insulin Lispro [Insulin Lispro Kwikpen U-100] 4 units SQ ACHS 10/14/20 Niacin (Inositol Niacinate) [Niacin 500 mg Capsule] 1 cap PO BEDTIME 10/14/20 Pantoprazole [Protonix Tab*] 1 tab PO DAILY 10/14/20 Sitagliptin Phosphate [Januvia*] 1 tab PO DAILY 10/14/20 Lactobacillus Acidophilus [Acidophilus Lactobacilli] 1 each PO TID #30 capsule 10/17/20 Losartan Potassium 25 mg PO DAILY #30 tablet 10/17/20 levoFLOXacin [Levaquin*] 250 mg PO DAILY@2100 #11 tab 10/17/20 New Medications: Lactobacillus Acidophilus [Acidophilus Lactobacilli] 1 each PO TID #30 capsule levoFLOXacin [Levaquin*] 250 mg PO DAILY@2100 #11 tab Losartan Potassium 25 mg PO DAILY #30 tablet Physician Discharge Instructions: Patient presented with altered mental status secondary to toxic/metabolic encephalopathy related to UTI and bacteremia. Patient was found to have Klebsiella in the urine and blood. Patient responded well to IV antibiotic therapy and IV fluids. Nephrology was consulted during the course of her stay. At discharge patient back to baseline. No abnormal symptoms noted. At discharge patient will continue with Levaquin 250 mg daily for 11 more days to complete treatment. Patient will also continue with lactobacillus 3 times a day for the duration of antibiotic therapy. Repeat blood culture and urine culture obtained prior to discharge. Recommend follow-up with PCP to follow-up this hospitalization. UTI prevention will be provided. Patient had acute renal failure with hyponatremia likely from dehydration. Patient with chronic renal disease stage III. Nephrology was consulted. Adjustments in medications were made. At discharge will recommend to discontinue Metformin and hydrochlorothiazide. Recommend future adjustments in medications per renal function. Recommend no further use of nonsteroidal anti-inflammatories. Recommend to monitor labBMP closely. Recommend follow-up with nephrology as an outpatient to further address. Patient with diabetes mellitus type 2 with hyperglycemia. Medications have been adjusted. Due to her chronic renal disease will recommend to discontinue Metformin. At discharge patient may continue with Januvia 100 mg daily, glimepiride 4 mg daily. Patient may also continue with her Lantus 23 units subcu twice daily and Humalog sliding scale. Recommend to maintain blood sugar less than 140 fasting and less than 200 after meals. Recommend follow-up with PCP to further monitor and adjust medication. Patient with hypertension. Medications have been adjusted due to her renal disease. Please note hydrochlorothiazide has been discontinued. Patient will continue with losartan at a lower dose of 25 mg daily. Recommend to maintain blood pressure less than 130/80. Further adjustment can be done by her PCP. Patient with anemia chronic disease. At discharge patient will continue with iron supplementation. Patient with hyperlipidemia. At discharge patient will continue with her medications including fish oil, fenofibrate, niacin and Ezetimbe. Recommend fo llow-up with PCP to further monitor and adjust. Diet: ADA Activity: Ad vero Followup: Reece Delacruz MD [ACTIVE - CAN ADMIT] - 1 Week Time spent managing pt's care (in minutes): 55
--- NOTE | 2020-10-17 10:01 | P.CNS ---
Date of Consult: 10/17/20 Reason for Consult: continuity of care Requesting Physician: Parker Villasenor Primary Care Provider: Janak Chief Complaint: confusion History of Present Illness: Hudson ayala from [place]. She has a history of dm2, htn. Possible sleep apnea. The patient was admitted for confusion. Found to have a UTI and hyperglycemia. She was seen by Dr. Lindsay as well for stage 3 ckd. We do not have a previous creatine. She was found to have a klebsiella pneumonia in her urine and blood. She would need a follow up in her care. Therefore I was consulted on her to give the patient a local primary Allergies Penicillins Allergy (Verified 10/14/20 20:40) Shortness of breath Vmeqssn-Myb-Mhj Reductase Inhibitor Allergy (Verified 10/14/20 20:40) pain in the leg statins Allergy (Uncoded 10/14/20 20:40) pain in the leg Home Medications: Cholecalciferol (Vitamin D3) [Vitamin D3] 1 tab PO TID 10/14/20 Docosahexanoic AC/Epa [Fish Oil 1,000 MG*] 1 cap PO TID 10/14/20 Fenofibric Acid (Choline) [Fenofibric Acid] 1 cap PO DAILY 10/14/20 Ferrous Sulfate [Ferrous Sulfate*] 1 tab PO DAILY 10/14/20 Insulin Glargine,Hum.rec.anlog [Lantus Solostar] 23 units SQ BID 10/14/20 Niacin (Inositol Niacinate) [Niacin 500 mg Capsule] 1 cap PO BEDTIME 10/14/20 RX: Ezetimibe 1 tab PO DAILY 10/14/20 RX: Glimepiride 1 tab PO DAILY 10/14/20 RX: Insulin Lispro [Insulin Lispro Kwikpen U-100] 4 units SQ ACHS 10/14/20 RX: Losartan Potassium 1 tab PO DAILY 10/14/20 RX: Metformin HCl [Metformin HCl ER] 2 tab PO BID 10/14/20 RX: Pantoprazole [Protonix Tab*] 1 tab PO DAILY 10/14/20 Sitagliptin Phosphate [Januvia*] 1 tab PO DAILY 10/14/20 hydroCHLOROthiazide [Hydrochlorothiazide] 1 tab PO DAILY 10/14/20 - Past Medical/Surgical History Diabetic: Yes -: HTN -: UTI -: IDDM -: HLD -: 6YEARS AGO-HYSTERECTOMY - Family History Uncle Medical History: Diabetes - Social History Alcohol use: Yes CD- Drugs: No Caffeine use: Yes Place of Residence: Home Review of Systems 10-point ROS is otherwise unremarkable Physical Examination Temp Pulse Resp BP Pulse Ox 97.1 F 61 18 137/62 94 10/17/20 08:00 10/17/20 08:00 10/17/20 08:00 10/17/20 08:00 10/17/20 08:00 General: Alert, In no apparent distress HEENT: Atraumatic, PERRLA, Mucous membr. moist/pink, EOMI, Sclerae nonicteric Neck: Supple, 2+ carotid pulse no bruit, No LAD, Without JVD or thyroid abnormality Respiratory: Clear to auscultation bilaterally, Normal air movement Cardiovascular: Regular rate/rhythm, Normal S1 S2 Gastrointestinal: Normal bowel sounds, No tenderness Musculoskeletal: No tenderness Integumentary: No rashes Neurological: Normal gait, Normal speech, Normal tone, Normal affect Lymphatics: No axilla or inguinal lymphadenopathy - Problems (1) UTI (urinary tract infection) Current Visit: Yes Status: Acute Plan: multidrug sensitive. Would give 2 weeks of oral antibiotics as the patient has positive blood cultures Qualifiers: Urinary tract infection type: acute cystitis Hematuria presence: without hematuria Qualified Code(s): N30.00 - Acute cystitis without hematuria (2) DM2 (diabetes mellitus, type 2) Current Visit: Yes Status: Acute Plan: Will consider a glp1. Referal to [facility] diabetic education. Would like to work her up for sleep apnea. Qualifiers: Diabetes mellitus emt intermediate insulin use: with emt intermediate use Diabetes mellitus complication status: with kidney complications Diabetes mellitus complication detail: with chronic kidney disease Chronic kidney disease stage: stage 3 (moderate) (3) HTN (hypertension) Current Visit: Yes Status: Chronic Plan: continue her home medications. Qualifiers: Hypertension type: essential hypertension Qualified Code(s): I10 - Essential (primary) hypertension Physician Review: Patient Assessed, Agree with Above Assessment and Plan Critical Care: No Time Spent Managing Pts care (In Minutes): 20
[2020-10-17 10:04] VITALS: O2SAT 94
[2020-10-17] MEDS ORDERED: INSULIN LISPRO 100 UNIT/1 ML SQ SCH (11:30)
[2020-10-17] MEDS ORDERED: DOCOSAHEXANOIC AC/EPA 1000 MG PO SCH (14:00)
[2020-10-17] MEDS ORDERED: LACTOBACILLUS/ACIDOPHILUS TAB PO SCH (14:00)
[2020-10-17] MEDS ORDERED: VITAMIN D 1000 UNIT TAB PO SCH (14:00)
--- NOTE | 2020-10-17 20:32 | P.PN ---
Date of Service: 10/16/20 Vital Signs Temp Pulse Resp BP Pulse Ox 97.1 F 61 18 137/62 94 10/17/20 08:00 10/17/20 08:00 10/17/20 08:00 10/17/20 08:00 10/17/20 08:00 Microbiology Results 10/14/20 15:48 Catheterized Urine [place] Count - Final >100,000 CFU/ML. 10/14/20 15:48 Catheterized Urine - Final Klebsiella Pneumoniae 10/14/20 15:30 Blood - Blood Aerobic Blood Culture - Final Klebsiella Pneumoniae 10/14/20 15:30 Blood - Blood Blood Culture Gram Stain - Final 10/14/20 15:30 Blood - Blood Anaerobic Blood Culture - Final Klebsiella Pneumoniae 10/14/20 15:30 Blood - Blood Gram Stain - Final 10/14/20 15:07 Blood - Blood Aerobic Blood Culture - Final Klebsiella Pneumoniae 10/14/20 15:07 Blood - Blood Blood Culture Gram Stain - Final 10/14/20 15:07 Blood - Blood Anaerobic Blood Culture - Final Klebsiella Pneumoniae 10/14/20 15:07 Blood - Blood Gram Stain - Final Assessment/ Plan: Nephrology No acute cardiac or pulmonary complaints. No CP or SOB. No acute events overnight. Vitals, medications, blood work and imaging reviewed in the chart. General: In no apparent distress, Oriented x3, Cooperative HEENT: Atraumatic Neck: Supple Respiratory: Clear to auscultation bilaterally Cardiovascular: Edema (Trace) Gastrointestinal: Soft and benign, Non-distended Musculoskeletal: No clubbing, No contractures Integumentary: No rashes, No cyanosis Neurological: Normal speech Laboratory Data (last 24 hrs) 10/14/20 15:07: PT 15.5 H, INR 1.34, APTT 29.2 10/14/20 15:07: WBC 13.30 H, Hgb 12.2, Hct 35.9 L, Plt Count 217 10/14/20 15:07: Sodium 133 L, Potassium 4.2, BUN 19 H, Creatinine 1.34 H, Glucose 306 H, Total Bilirubin 1.0, AST 9 L, ALT 16, Alkaline Phosphatase 63, Lipase 85 Imagings Data: EXAM DESCRIPTION: Jacy Single View10/14/2020 3:25 pm CLINICAL HISTORY: Fever COMPARISON: none FINDINGS: The lungs appear clear of acute infiltrate. The heart is normal size IMPRESSION: No acute abnormalities displayed Conclusions/Impression: A/P: Continue the current POC and Medications other than the changes listed. AM Labs PRN. Recommend daily weight. Please see the orders for complete details. CKD III with proteinuria -No NSAIDs -Restart Losartan as indicated Hyponatremia -Improve BG -Encourage nutrition HTN with CKD -Restart Losartan as indicated DM II with CKD -Continue RISS -Continue Lantus and titrate as needed Moderate malnutrition -Encourage nutrition with protein supplementation -ADA diet Anemia in chronic illness -Monitor H&H Acute cystitis -Continue Levaquin -Follow C&S
[2020-10-17] MEDS ORDERED: NIACIN 500 MG SR TAB PO SCH (21:00)
[2020-10-17] MEDS ORDERED: levoFLOXacin 250 MG TAB PO SCH (21:00)
[2020-10-17] MEDS ORDERED: INSULIN GLARGINE 100 UNITS/ML SQ SCH (21:00)
[2020-10-18] MEDS ORDERED: EZETIMIBE 10 MG TAB PO SCH (09:00)
[2020-10-18] MEDS ORDERED: FENOFIBRIC ACID 135 MG PO SCH (09:00)
[2020-10-18] MEDS ORDERED: SITAGLIPTIN PHOS 100 MG TAB PO SCH (09:00)
[2020-10-18] MEDS ORDERED: FERROUS SULFATE 325 MG TAB PO SCH (09:00)
[2020-10-18] MEDS ORDERED: PANTOPRAZOLE 40MG TABLET PO SCH (09:00)
[2020-10-18] MEDS ORDERED: GLIMEPIRIDE 2 MG TABLET PO SCH (09:00)
== END 2020-10-17 12:34 | disposition home or self-care (01) | DRG 689 ==
LOC: ER 14:38 → ERHOLD 16:24 → 2ND 19:57
PROVIDERS: ADMIT Internal Medicine; ATTEND Family Medicine
DX: N30.00 Acute cystitis without hematuria (principal); G92 Toxic encephalopathy; E87.1 Hypo-osmolality and hyponatremia; N17.9 Acute kidney failure, unspecified; E44.0 Moderate protein-calorie malnutrition; Z68.42 Body mass index [BMI] 45.0-49.9, adult; R78.81 Bacteremia; I12.9 Hypertensive chronic kidney disease with stage 1 through stage 4 chronic kidney disease, or unspecified chronic kidney disease; N18.30 Chronic kidney disease, stage 3 unspecified; E11.22 Type 2 diabetes mellitus with diabetic chronic kidney disease; E11.65 Type 2 diabetes mellitus with hyperglycemia; D63.8 Anemia in other chronic diseases classified elsewhere; E78.5 Hyperlipidemia, unspecified; K21.9 Gastro-esophageal reflux disease without esophagitis; E66.9 Obesity, unspecified; B96.1 Klebsiella pneumoniae [K. pneumoniae] as the cause of diseases classified elsewhere; Z88.0 Allergy status to penicillin; Z88.8 Allergy status to other drugs, medicaments and biological substances; Z79.4 Long term (current) use of insulin; Z90.710 Acquired absence of both cervix and uterus; Z79.899 Other long term (current) drug therapy; Z20.822 Contact with and (suspected) exposure to COVID-19
CPT/HCPCS: 0240U; 36415; 70450; 71045; 80048; 80053; 80076; 80307; 80320; 81003; 81015; 82140; 82550; 82947; 83036; 83605; 83690; 83735; 84145; 84439; 84443; 84484; 85025; 85610; 85730; 87040; 87077; 87086; 87088; 87186; 87205; 93005; 94760; 96374; 99285; J1650; J1815; J3475; J7030